=== PATIENT | female | born 1990 | race Caucasian/White ===

== ENCOUNTER 2023-03-24 10:54 | Outpatient (CLI) | payer OTHER ==
--- NOTE | 2023-03-24 11:45 | XRAY Report ---
PROCEDURE: Foot 3 View RT INDICATIONS: PAIN IN FOOR TECHNIQUE: 3 views of the foot were acquired. COMPARISON: None. FINDINGS: Bones: No fractures or dislocations. No suspicious bony lesions. Soft tissues: No suspicious soft tissue calcifications or masses. IMPRESSION: No acute bony abnormality. Reviewed by: John Paul Ruelas on 03/24/2023 11:44 AM [facility] Approved by: John Paul Ruelas on 03/24/2023 11:44 AM [facility] Station ID: [id number]
== END 2023-03-24 10:55 | disposition home or self-care (01) ==
LOC: DI 10:54
PROVIDERS: ATTEND Physician Assistant Medical
DX: M79.671 Pain in right foot (principal)

== ENCOUNTER 2023-12-15 11:15 | Outpatient (CLI) | payer OTHER | END 2023-12-15 11:30 | disposition home or self-care (01) | LOC: LAB.N 11:15 | PROVIDERS: ATTEND Family Medicine | DX: R30.0 Dysuria (principal) | CPT/HCPCS: 87077; 87086 ==